=== PATIENT | female | born 1995 | race Caucasian/White ===

== ENCOUNTER → 2017-12-21 | Outpatient (CLI) | payer OTHER | LOC: LAB 13:22 | PROVIDERS: ATTEND Physician Assistant | DX: L70.0 Acne vulgaris (principal); Z79.899 Other long term (current) drug therapy | CPT/HCPCS: 36415; 84703 ==

== ENCOUNTER 2019-11-20 05:36 | Outpatient (CLI) | payer BC, OTHER ==
[~2019-11-20] VITALS: Ht 170.2 cm; Wt 68.2 kg
[2019-11-20] MEDS ORDERED: bcp PO (12:38)
[2019-11-20] MEDS ORDERED: LEVO5TAB28 PO (12:38)
== END 2019-11-20 12:41 | disposition home or self-care (01) ==
LOC: PREOP 05:36
PROVIDERS: ATTEND Otolaryngology Otolaryngology/Facial Plastic Surgery
DX: Z01.818 Encounter for other preprocedural examination (principal)

== ENCOUNTER 2019-11-27 10:00 | Day surgery (SDC) | payer BC, OTHER ==
[~2019-11-27] VITALS: Ht 170.2 cm; Wt 68.2 kg
[2019-11-27] VITALS (11 sets, daily range): BP systolic 120–142; BP diastolic 60–117
[~2019-11-27 10:00] MED LIST: LEVO5TAB28 PO; bcp PO
[2019-11-27] MEDS ORDERED: LACTATED RINGERS 1,000 ML IV PRN (10:14)
[2019-11-27] MEDS ORDERED: MIDAZOLAM 2 MG/2 ML (VERSED) VIAL IV ONE (10:15)
[2019-11-27] MEDS ORDERED: LIDOCAINE PF 2% 5 ML (XYLOCAINE) VIAL ONE (11:53)
[2019-11-27] MEDS ORDERED: NEOSTIGMINE 3 MG/3 ML VIAL ONE (11:53)
[2019-11-27] MEDS ORDERED: proPOfol 200 MG/20 ML (DIPRIVAN) VIAL IV ONE (11:53)
[2019-11-27] MEDS ORDERED: GLYCOPYRROLATE 0.2 MG/ML (ROBINUL) 2 ML VIAL ONE (11:53)
[2019-11-27] MEDS ORDERED: SEVOFLURANE (ULTANE) 15 ML INHAL SOLN ONE (11:53)
[2019-11-27] MEDS ORDERED: ONDANSETRON 4 MG/2 ML (SDV) Z0FRAN ONE (11:53)
[2019-11-27] MEDS ORDERED: DEXAMETHASONE 10 MG/ML (DECADRON) 1 ML VIAL ONE (11:53)
[2019-11-27] MEDS ORDERED: ROCURONIUM 10 MG/ML 5 ML SYRINGE IV ONE ×2 (11:53→11:57)
[2019-11-27] MEDS ORDERED: MIDAZOLAM 2 MG/2 ML (VERSED) VIAL ONE (11:54)
[2019-11-27] MEDS ORDERED: fentaNYL INJECTION 100 MCG/2 ML AMP ONE (11:54)
--- NOTE | 2019-11-27 12:12 | Progress Note-Pre Operative ---
Pre-Operative Progress Note H&P Reviewed The H&P was reviewed, patient examined and no changes noted. Date Seen by Provider: Nov 27, 2019 Time Seen by Provider: 11:45 Date H&P Reviewed: Nov 27, 2019 Time H&P Reviewed: 11:45 Pre-Operative Diagnosis: Chronic Tonsillitis BRUNO GEORGE MD Nov 27, 2019 12:12
[2019-11-27 12:40] LABS: BASOPHILS % (AUTO) 0 % (0-10); EOSINOPHILS # (AUTO) 0.1 10^3/uL (0.0-0.3); EOSINOPHILS % (AUTO) 1 % (0-10); HEMATOCRIT 36 % (35-52); HEMOGLOBIN 12.6 G/DL (11.5-16.0); LYMPHOCYTES # (AUTO) 1.5 X 10^3 (1.0-4.0); LYMPHOCYTES % (AUTO) 22 % (12-44); MEAN CORPUSCULAR HEMOGLOBIN 30 PG (25-34); MEAN CORPUSCULAR HGB CONC 35 G/DL (32-36); MEAN CORPUSCULAR VOLUME 87 FL (80-99); MONOCYTES # (AUTO) 0.4 X 10^3 (0.0-1.0); MONOCYTES % (AUTO) 5 % (0-12); NEUTROPHILS # (AUTO) 4.9 X 10^3 (1.8-7.8); NEUTROPHILS % (AUTO) 72 % (42-75); PLATELET COUNT 252 10^3/uL (130-400); RED CELL DISTRIBUTION WIDTH 11.8 % (10.0-14.5); WHITE BLOOD COUNT 6.8 10^3/uL (4.3-11.0)
[2019-11-27] MEDS ORDERED: NS IV 1000 ML 1,000 ML IV SCH (12:40)
--- NOTE | 2019-11-27 12:41 | Progress Note-Post Operative ---
Post-Operative Progess Note Surgeon (s)/Light Technician (s) Surgeon BRUNO GEORGE MD Light Technician n/a Pre-Operative Diagnosis Chronic Tonsillitis Post-Operative Diagnosis same Post-Op Procedure Note Date of Procedure: Nov 27, 2019 Name of Procedure Performed: Tonsillec cecille Description & Findings Description and Findings: n/a Anesthesia Type get Estimated Blood Loss minimal Packing none. Specimen(s) collected/removed tonsils BRUNO GEORGE MD Nov 27, 2019 12:40
[2019-11-27] MEDS ORDERED: APAP 325 MG/10.15 ML LIQ (TYLENOL) UDC PO PRN (12:45)
[2019-11-27] MEDS ORDERED: HYDROcodone/APAP 7.5MG-325 MG/15 ML (LORTAB) UDC PO PRN (12:45)
[2019-11-27] MEDS ORDERED: morphine INJ 10 MG/ML 1ML (SYR OR VIAL) IVP ONE (13:00)
[2019-11-27] MEDS ORDERED: HYDROmorphone 2 MG/ML VIAL (DILAUDID) IV ONE (13:00)
[2019-11-27] MEDS ORDERED: ONDANSETRON 4 MG/2 ML (SDV) Z0FRAN IVP PRN (13:00)
--- NOTE | 2019-11-27 14:20 | Anesthesia-General Post-Op ---
General Patient Condition Mental Status/LOC: Same as Preop Cardiovascular: Satisfactory Nausea/Vomiting: Absent Respiratory: Satisfactory Pain: Controlled Complications: Absent Post Op Complications Complications None Follow Up Care/Instructions Patient Instructions None needed. Anesthesia/Patient Condition Patient Condition Patient is doing well, no complaints, stable vital signs, no apparent adverse anesthesia problems. She did either bite down on her tongue in PACU or the mouth retractor from the procedure so she has a small bruise on the left side of her tongue and swelling on the right. She is stable for discharge to home. FREDI GARCIA DO Nov 27, 2019 14:20
[2019-11-27] MEDS ORDERED: AMOX250S5 PO (14:54)
[2019-11-27] MEDS ORDERED: HYDR15SO8 PO (14:54)
[2019-11-27] MEDS ORDERED: DEXAINTSOL PO (14:54)
[2019-11-27] MEDS ORDERED: TETRACAINESUCKERS MT (14:54)
== END 2019-11-27 15:25 | disposition home or self-care (01) ==
LOC: SDC 10:00
PROVIDERS: ATTEND Otolaryngology Otolaryngology/Facial Plastic Surgery
DX: J35.01 Chronic tonsillitis (principal)
CPT/HCPCS: 36415; 84703; 85025; 87081; 88304

== ENCOUNTER 2019-12-03 13:12 | Outpatient (CLI) | payer BC ==
[~2019-12-03 13:12] MED LIST changes: +AMOX250S5 PO; +DEXAINTSOL PO; +HYDR15SO8 PO; +TETRACAINESUCKERS MT
[2019-12-03] MEDS ORDERED: fentaNYL INJECTION 100 MCG/2 ML AMP IV ONE (13:30)
[2019-12-03 13:31] LABS: HEMOGLOBIN 13.9 G/DL (11.5-16.0)
[2019-12-03] MEDS: NS IV 1000 ML 1,000 ML IV SCH ×2 (13:35→14:34)
[2019-12-03 13:52] VITALS: BP 100/76
--- NOTE | 2019-12-03 15:10 | NUR ---
DR. GEORGE CALLED TO CHECK ON THE PATIENT. UPDATE GIVEN. LAB RESULTS GIVEN. NEW ORDER RECEIVED FOR FENTANYL 25 MCG. PATIENT NOT WANTING TO STAY THE NIGHT. PATIENT HAS DRINKING 180 CC OF WATER. ENCOURAGED MORE PO FLUID WHEN PAIN MEDICATION IS HELPING.
[2019-12-03] MEDS ORDERED: fentaNYL INJECTION 100 MCG/2 ML AMP IVP PRN (15:30)
[2019-12-04] MEDS ORDERED: ONDA4TAB11 PO (15:23)
[2019-12-04] MEDS ORDERED: AMOX250S5 PO (15:23)
[2019-12-04] MEDS ORDERED: OXYC5SOL19 PO (15:23)
[2019-12-04] MEDS ORDERED: LEVO1TAB7 PO (15:36)
== END 2019-12-03 15:38 | disposition home or self-care (01) ==
LOC: SDC 13:12
PROVIDERS: ATTEND Otolaryngology Otolaryngology/Facial Plastic Surgery
DX: E86.0 Dehydration (principal)
CPT/HCPCS: 36415; 85014; 85018; 96360; 96361; 96374